=== PATIENT | male | born 1990 | race Caucasian/White ===

== ENCOUNTER 2021-03-31 15:11 | Emergency (ER) | payer OTHER ==
[~2021-03-31] VITALS: Ht 165.1 cm; Wt 95.3 kg
[~2021-03-31 15:11] MED LIST: AMOXICILLIN875 MG PO
== END 2021-03-31 18:00 | disposition home or self-care (01) ==
LOC: ER1 15:11
DX: U07.1 COVID-19 (principal); Z23 Encounter for immunization
CPT/HCPCS: 99282; M0245